=== PATIENT | male | born 1945 | race Caucasian/White ===

== ENCOUNTER 2024-12-30 17:27 | Emergency (ER) | payer MEDICARE, OTHER ==
[2024-12-30] MEDS: diphenhydrAMINE 50 MG/ML SDV IM ONE (18:54)
[2024-12-30] MEDS: Ketorolac 30 MG/ML SDV IM ONE (19:50)
== END 2024-12-30 20:33 | disposition home or self-care (01) ==
LOC: JP.ED 17:27
DX: T63.441A Toxic effect of venom of bees, accidental (unintentional), initial encounter (principal); I48.91 Unspecified atrial fibrillation; E78.00 Pure hypercholesterolemia, unspecified; Z79.899 Other long term (current) drug therapy; Z79.01 Long term (current) use of anticoagulants
CPT/HCPCS: 96372; 99282; J1200; J1885